=== PATIENT | male | born 1965 | race Caucasian/White ===

== ENCOUNTER 2020-05-03 15:56 | Observation (INO) | payer BC, SELFPAY ==
[2020-05-03] VITALS (7 sets, daily range): BP systolic 114–150; BP diastolic 65–98; PULSE 100–114; RESP 16–18; TEMP 36.4–36.5; O2SAT 96–100; BMI 21.2
--- NOTE | ~2020-05-03 | CT_ITS ---
EXAMINATION: CT abdomen pelvis w con INDICATION: Lower abdominal and back pain, bloody stools, weight loss TECHNIQUE: Computed tomographic images of the abdomen and pelvis were obtained after the administrati on of 100 cc of Omnipaque 350 intravenous contrast. The dose-length product (DLP) was 271.01 mGy-cm. Automated exposure control and iterative reconstruction technique were employed. COMPARISON: None available FINDINGS: There is a 9 mm nodule of the left lower lobe on image 19. The heart size is normal. The li paul, spleen, pancreas, gallbladder, and adrenal glands are normal. The kidneys are unremarkable. Ther e is marked distention of the urinary bladder. There is calcified atherosclerosis of the aorta and ma ny of the other arteries. No pathologically enlarged abdominal or pelvic lymph nodes are identified. There is no free intraperitoneal gas or evidence of bowel obstruction. There is questionable mild wal l thickening of the rectum rectum. There is mild lumbar spondylosis. IMPRESSION: 1. Possible wall thickening of the rectum which could be due to proctitis or incomplete distention. 2. Indeterminate 9 mm nodule of the left lower lobe. Consider CT in three months, PET/CT, or tissue s ampling. Reviewed, dictated and finalized at location [facility] IMPRESSION: 1. Possible wall thickening of the rectum which could be due to proctitis or in complete distention. 2. Indeterminate 9 mm nodule of the left lower lobe. Consider CT in three month s, PET/CT, or tissue sampling.
[2020-05-03 16:26] LABS: Basophils Absolute Auto 0.1 K/mm3 (0.0-0.1); Basophils Percent Auto 0.5 % (0.2-1.2); Eosinophils Absolute Auto 0.2 K/mm3 (0-0.3); Eosinophils Percent Auto 2.1 % (0-4.4); Hematocrit 45.9 % (42.0-52.0); Hemoglobin 15.9 g/dL (14.0-18.0); Immature Granulocyte Absolute 0.03 K/mm3 (0.00-0.031); Immature Granulocyte Percent A 0.3 % (0-0.5); Lymphocytes Absolute Auto 1.75 K/mm3 (0.9-3.2); Lymphocytes Percent Auto 19.2 % (18.3-44.2); Mean Corpuscular HGB Conc 34.6 g/dl (32-36); Mean Corpuscular Hemoglobin 30.3 pg (26-34); Mean Corpuscular Volume 87.6 fl (80-100); Mean Platelet Volume 9.3 fl (7.4-10.4); Monocytes Absolute Auto 0.8 K/mm3 (0.1-0.6); Monocytes Percent Auto 8.4 % (2.6-8.5); Neutrophils Absolute Auto 6.3 K/mm3 (1.3-6.7); Neutrophils Percent Auto 69.5 % (45.5-73.1); Platelet Count Result 219 k/mm3 (150-375); Red Blood Count 5.24 M/mm3 (4.6-6.20); Red Cell Distribution Width 11.9 % (11.5-14.5); White Blood Count 9.1 K/mm3 (4.5-10.0)
--- NOTE | 2020-05-03 16:26 | ED.ABDPAIN ---
HPI - Abdominal Pain General Chief Complaint: Abdominal Pain Stated Complaint: abd pain, blood and pus from rectum Time Seen by Provider: 05/03/20 16:08 Source: patient Mode of arrival: ambulatory Limitations: no limitations History of Present Illness HPI narrative: Patient is a 55-year-old male complaining of mid abdominal pain, 8 out of 10, aching, nonradiating started 6 months ago accompanied by blood in his stool which he attributes to large hemorrhoids that started 1 month ago. Patient states that he has not seen a doctor because he has been in long-term for the past 24 years . Patient denies any chest pain, shortness of breath, nausea, vomiting, fever or chills. Patient denies any urinary symptoms. Patient denies any hemoptysis, hematemesis or melena. Related Data Home Medications Medication Instructions Recorded Confirmed No Home Medications 05/03/20 05/03/20 Allergies Allergy/AdvReac Type Severity Reaction Status Date / Time No Known Allergies Allergy Verified 05/03/20 16:04 Review of Systems Review of Systems: All systems reviewed & are unremarkable except as noted in HPI and below Constitutional: Constitutional: Denies body ache(s), Denies chills, Denies excessive sweating, Denies fatigue, Denies fever(s), Denies headache(s), Denies lethargy, Denies malaise, Denies weakness and Denies weight loss Eyes: Eyes: Denies blurry vision, Denies change in vision and Denies loss of vision ENT: Denies dizziness, Denies ear discharge, Denies headache(s), Denies lip swelling, Denies epistaxis, Denies nasal congestion, Denies neck pain, Denies throat swelling and Denies tongue swelling Cardiovascular: Cardiovascular: Denies chest pain, Denies chest pain at rest, Denies chest pain with activity, Denies diaphoresis, Denies rapid heart rate, Denies edema, Denies irregular heart rhythm, Denies lightheadedness, Denies palpitations, Denies dyspnea and Denies dyspnea on exertion Respiratory: Respiratory: Denies chest congestion, Denies cough, Denies hemoptysis, Denies dyspnea and Denies dyspnea on exertion Gastrointestinal: Gastrointestinal: Denies melena, Denies diarrhea, Denies nausea, Denies vomiting and Denies hematemesis Musculoskeletal: Musculoskeletal: Denies abnormal gait, Denies deformity, Denies joint swelling, Denies limited range of motion, Denies neck pain and Denies numbness Neurologic: Denies Abnormal speech present, Denies abnormal gait, Denies confusion, Denies dizziness, Denies headache(s), Denies focal weakness, Denies loss of vision, Denies numbness, Denies Other visual disturbances, Denies Sensory deficit (Neuro) and Denies weakness Psychiatric: Psychiatric: Denies confusion, Denies depression, Denies auditory hallucinations, Denies homicidal ideation and Denies suicidal ideation Endocrine: Endocrine: Denies cold intolerance, Denies excessive sweating, Denies fatigue, Denies heat intolerance and Denies palpitations Hematologic/Lymphatic: Hematologic/Lymphatic: Denies easy bleeding and Denies easy bruising Allergic/Immunologic: Allergic/Immunologic: Denies lip swelling, Denies throat swelling and Denies tongue swelling PMFSH Social History Social History Gender identity (if verbalized by the patient): Male Comments Past medical history: Diabetes, hypertension, hyperlipidemia Family history: Noncontributory Social history: Positive for 2 pack/day smoker, negative for EtOH use, occasional drug use (METH) Exam Const: General: cooperative, healthy appearing, comfortable, no acute distress, well developed, alert and awake; No confusion Orientation/consciousness: oriented to person, oriented to place, oriented to time, patient oriented x3 and No confusion Limitations: no limitations HENMT: Head: normal to inspection, normocephalic and atraumatic Ears: hearing grossly normal bilaterally, TM normal on the right and TM normal on the left General nose exam: Normal external nose present, Normal nares present an
[2020-05-03] MEDS: SODIUM CHLORIDE 0.9% IV 1,000 ML 999 ML IV CONT ×2 (16:29→17:14)
[2020-05-03 16:30] LABS: Add Urine Microscopic? YES; Appearance Urine Clear (Clear); Bilirubin Urine Negative (Negative); Blood Urine Negative (Negative); Color Urine Straw (Yellow); Glucose Urine UA 3+ mg/dL (Negative); Ketones Urine 1+ mg/dL (Negative); Leukocyte Esterase Ur Negative LEU/UL (Negative); Nitrate Urine Negative (Negative); Protein Urine Negative (Negative); RBC Urine 0-2 /hpf (0-2); Urobilinogen Urine Negative mg/dL (<2.0)
[2020-05-03 16:31] LABS: Specific Grav Ur 1.032 (1.001-1.035)
[2020-05-03 16:36] LABS: INR 0.8; Partial Thromboplastin Time 28.5 SECONDS (22.3-36.8); Prothrombin Time 12.1 Seconds (11.1-14.7)
[2020-05-03 16:37] LABS: Lactic Acid Reflex 3.9 mmol/L (0.7-2.1)
[2020-05-03 16:39] LABS: Albumin Level 3.7 g/dL (3.5-5.1); Alkaline Phosphatase 96 U/L (38-126); Anion Gap 10 mmol/L (8-16); Aspartate Amino Transferase 22 U/L (17-59); Bilirubin,Total 0.4 mg/dL (0.2-1.3); Blood Urea Nitrogen 11 mg/dL (9-20); Carbon Dioxide 24 mmol/L (22-30); Chloride 92 mmol/L (98-107); Estimated CRCL calculation 85 ml/min; Estimated Glomerular Filt Rate > 60; Potassium 4.2 mmol/L (3.4-5.0); Sodium 126 mmol/L (137-145)
[2020-05-03 16:54] LABS: Alanine Aminotransferase 29 U/L (4-50)
[2020-05-03 17:18] LABS: Glucose 631 mg/dL (75-110)
--- NOTE | 2020-05-03 17:50 | PC.NURSE ---
upon returning to room from bathroom patient found drinking chocolate milk. Reminded pt and niece that patient is NPO at this time for testing. made aware.
[2020-05-03 17:57] LABS: Alveolar/Arterial O2 Gradient 28.3 mmHg; Base Excess ABG -3.3 mEq/l (+/-2.0); Carboxyhemoglobin 4.1 % THb (0-2.0); Fractional Inspired Oxygen 21 %; HCO3 ABG 21.6 mEq/l (22.0-26.0); Methemoglobin ABG 0.4 %THb (0-1.5); Oxygen Content ABG 20.1 %vol (16.0-22.0); Oxygen Saturation ABG 94.8 % (95.0-100.0); Oxyhemoglobin 90.1 % THb (90.0-100.0); PCO2 ABG 38.5 mmHg (35.0-45.0); PO2 ABG 75.3 mmHg (80.0-100.0); PO2 FiO2 Ratio Arterial Blood 3.59 %; Reduced Hemoglobin 5.4 %THb (0-5.0); Total Hemoglobin 15.9 g/dL (12.0-18.0); pH ABG 7.367 (7.350-7.450)
[2020-05-03 17:58] LABS: Device ROOM AIR; Site Drawn RIGHT BRACHIAL
[2020-05-03] MEDS: LACTATED RINGERS 1,000 ML 999 ML IV CONT ×2 (18:29)
[2020-05-03 19:09] LABS: Glucose Point of Care 401 (65-105)
[2020-05-03 19:24] LABS: Reflex Lactic Acid Yes or No Add Lactic
[2020-05-03] MEDS: INSULIN HUMAN REGULAR (*BKC) 100 UNITS/ML 10 UNITS SUB-Q (19:57)
[2020-05-03] MEDS: metroNIDAZOLE 500 MG/ISO 100ML 500 MG/100 ML BAG 100 MG IVPB (20:21)
[2020-05-03 20:33] LABS: Lactic Acid 16.2 mmol/L (0.7-2.1)
[2020-05-03 20:35] LABS: Glucose Point of Care 280 (65-105)
[2020-05-03] MEDS: AZITHROMYCIN 250 MG TABLET 1000 MG PO (20:42)
[2020-05-03 20:58] LABS: Lactic Acid Reflex 1.7 mmol/L (0.7-2.1)
--- NOTE | 2020-05-03 21:42 | ADMGEN ---
This patient, Glen Rojas, was admitted to Medical Room 240-01 at 2120. Patient/family oriented to hospital policies and general routines including ID bracelet, bed and alarms, visiting hours, pain management, procedures, bathroom and other care routines, personal items, smoking policy, room service/diet, and visiting hours. Information on how to activate the Rapid Response Team has been discussed. Patient/Family are encouraged to report perceived risks to care and to ask questions if they do not understand what they are told or what they should do.
[2020-05-03] MEDS: LACTATED RINGERS 1,000 ML 125 ML IV CONT (22:29)
[2020-05-03 23:02] LABS: Glucose Point of Care 133 (65-105)
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
[2020-05-04] MEDS: PANTOPRAZOLE SODIUM IV 40 MG VIAL IV PUSH ×3 (00:52→18:44)
[2020-05-04] MEDS: PHENYLEPHRINE HCL/COCOA BUTTER SUPP.RECT (*BKC) 1 SUPP RECTAL ×3 (00:54→11:40)
[2020-05-04 05:16] LABS: Hematocrit 40.7 % (42.0-52.0); Mean Corpuscular HGB Conc 34.4 g/dl (32-36); Mean Corpuscular Hemoglobin 30.4 pg (26-34); Mean Corpuscular Volume 88.5 fl (80-100); Mean Platelet Volume 9.2 fl (7.4-10.4); Platelet Count Result 200 k/mm3 (150-375); Red Cell Distribution Width 11.9 % (11.5-14.5); White Blood Count 7.9 K/mm3 (4.5-10.0)
[2020-05-04 05:27] LABS: Anion Gap 5 mmol/L (8-16); Blood Urea Nitrogen 10 mg/dL (9-20); Calcium 8.3 mg/dL (8.4-10.2); Carbon Dioxide 27 mmol/L (22-30); Chloride 102 mmol/L (98-107); Estimated CRCL calculation 85 ml/min; Estimated Glomerular Filt Rate > 60; Glucose 202 mg/dL (75-110); Sodium 134 mmol/L (137-145)
[2020-05-04 05:39] LABS: Hemoglobin A1C 13.5 % (<5.7)
[2020-05-04 05:57] VITALS: BP 132/85; PULSE 85; RESP 18; TEMP 36.6; O2SAT 99
[2020-05-04] MEDS: LACTATED RINGERS 1,000 ML 125 ML IV CONT ×2 (06:18→18:05)
[2020-05-04] MEDS: glipiZIDE 5 MG TABLET 10 MG PO (06:19)
[2020-05-04 06:59] LABS: Glucose Point of Care 212 (65-105)
[2020-05-04] MEDS: INSULIN ASPART (*BKC) 100 UNITS/ML SUB-Q (07:10)
[2020-05-04] MEDS: polyethylene glycoL 3350 17 GM POWD.PACK PO (08:09)
[2020-05-04 08:12] VITALS: O2SAT 99
[2020-05-04 10:43] LABS: Glucose Point of Care 157 (65-105)
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
[2020-05-04] MEDS: BISACODYL 5 MG TABLET EC 10 MG PO ×2 (12:17→16:03)
[2020-05-04] MEDS: NICOTINE (*PBKC) 4 MG GUM PO (12:21)
--- NOTE | 2020-05-04 13:06 | PM.IMPN ---
Progress Note: A&P Assessment and Plan (1) Proctitis: Onset Date: ~04/2020 Code(s): K62.89 - Other specified diseases of anus and rectum Status: Acute Assessment and Plan: Patient found to have retro rectal mass Started on Levofloxacin Unclear if this mass is from prostate Urology consult GI consulted Colonoscopy in am Bowel prep tonight (2) Weight loss: Onset Date: ~09/2019 Code(s): R63.4 - Abnormal weight loss Status: Acute Assessment and Plan: Unclear etiology Suspect for malignancy GI work up in progress (3) GERD (gastroesophageal reflux disease): Qualifiers: Esophagitis presence: esophagitis presence not specified Qualified Code(s): K21.9 - Gastro-esophageal reflux disease without esophagitis Code(s): K21.9 - Gastro-esophageal reflux disease without esophagitis Status: Acute Assessment and Plan: PPI (4) Tobacco abuse disorder: Code(s): Z72.0 - Tobacco use Status: Acute Assessment and Plan: Nicotine patch as needed (5) External bleeding hemorrhoids: Code(s): K64.4 - Residual hemorrhoidal skin tags Status: Acute Assessment and Plan: Local care. (6) Abdominal pain: Qualifiers: Abdominal location: unspecified location Qualified Code(s): R10.9 - Unspecified abdominal pain Code(s): R10.9 - Unspecified abdominal pain Status: Acute Assessment and Plan: Continue to monitor (7) Severe hyperglycemia due to diabetes mellitus: Code(s): E11.65 - Type 2 diabetes mellitus with hyperglycemia Status: Acute Assessment and Plan: ISS 1800 olga diet (8) Incidental lung nodule, greater than or equal to 8mm: Code(s): R91.1 - Solitary pulmonary nodule Status: Acute Assessment and Plan: Will follow in the outpatient setting Subjective Date/time seen: 05/04/20 13:06 States that has rectal pain. Review of Systems Review of Systems: Narrative: No new issues. Exam Narrative: Exam Narrative: Patient is lying in bed Const: General: cooperative, comfortable, no acute distress, well developed, alert, awake and Physically active Nutritional Appearance: average body habitus Orientation/consciousness: patient oriented x3 Limitations: no limitations HENMT: Head: normal to inspection and normocephalic Ears: hearing grossly normal bilaterally General nose exam: Normal external nose present Face and sinus: normal facial exam Eyes: General: appearance normal, both eyes and all related structures Pupils: Equal, round and reactive pupils present EOM: EOMs intact bilaterally Neck: Neck: no lymphadenopathy, supple and no JVD Resp: Effort & Inspection: normal respiratory effort and able to speak in complete sentences Auscultation: clear to auscultation bilaterally Cardio: Jugular venous distension: no JVD Rate: regular rate Rhythm: regular rhythm GI: GI Palp: Yes Soft to palpation and Yes No hepatosplenomegaly present Skin: Rashes: no rashes Wounds: no wounds Neuro: General: patient oriented x3 and CN's II-XI intact bilaterally Cranial nerves: Yes CN's II-XII intact bilaterally, Yes Equal, round and reactive pupils present and Yes Bilaterally intact EOM present Cognition (Neuro): normal cognition Speech: normal speech Gait exam (Neuro): Normal gait present Motor exam (neuro): 5/5 motor strength present throughout Extrem: General: no pedal edema Objective Data Vital Signs Vital Signs: Vital Signs - 24 hr 05/03/20 15:59 05/03/20 16:45 05/03/20 17:15 Temperature 97.5 F L Pulse Rate 114 H 111 H 102 H Respiratory Rate 18 18 16 Blood Pressure 114/73 136/85 123/90 Pulse Oximetry 97 100 100 05/03/20 18:00 05/03/20 19:11 05/03/20 20:07 Temperature Pulse Rate 103 H 102 H 103 H Respiratory Rate 16 18 16 Blood Pressure 146/98 H 150/65 H 138/86 Pulse Oximetry 100 100 96 05/03/20 21:46 05/04/20 05:57 05/04/20 08
[2020-05-04 14:00] VITALS: BP 136/93; PULSE 90; RESP 16; TEMP 36.6; O2SAT 98
[2020-05-04] MEDS: PHENYLEPH/SHARK OIL/MO/PETROL CREAM 26 GM 1 APPLIC RECTAL (16:04)
[2020-05-04] MEDS: PEG (High)/E-LYTE SOLN 4,000 ML BTL 4000 ML PO (16:21)
[2020-05-04 17:51] LABS: Glucose Point of Care 199 (65-105)
[2020-05-04] MEDS: WITCH HAZEL 40 PADS 1 PAD TOPICAL (18:44)
[2020-05-04 21:02] VITALS: BP 146/85; PULSE 92; RESP 18; TEMP 36; O2SAT 98
[2020-05-04] MEDS: MORPHINE SULFATE (*CRX) 2 MG/ML INJ 1 MG IV PUSH (21:27)
[2020-05-04 21:40] LABS: Glucose Point of Care 271 (65-105)
--- NOTE | 2020-05-04 21:40 | PC.NURSE ---
pt refusing final dose of bisacodyl at this time. Pt stool is clearing up at this time and pt has half of total bowel prep to drink.
[2020-05-05] VITALS (7 sets, daily range): BP systolic 115–144; BP diastolic 73–90; PULSE 66–94; RESP 16–22; TEMP 36.2–36.4; O2SAT 96–99; BMI 21.2
[2020-05-05] MEDS: LACTATED RINGERS 1,000 ML 125 ML IV CONT (02:47)
[2020-05-05] MEDS: PANTOPRAZOLE SODIUM IV 40 MG VIAL IV PUSH (08:03)
[2020-05-05 08:18] LABS: Glucose Point of Care 224 (65-105)
[2020-05-05 08:51] LABS: Glucose Point of Care 210 (65-105)
[2020-05-05] MEDS: LACTATED RINGERS 1,000 ML 150 ML IV CONT (08:56)
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
[2020-05-05 10:32] LABS: Glucose Point of Care 209 (65-105)
[2020-05-05 11:29] LABS: Glucose Point of Care 285 (65-105)
[2020-05-05] MEDS: INSULIN ASPART (*BKC) 100 UNITS/ML SUB-Q (11:33)
[2020-05-05] MEDS: ALPRAZolam (*CRX) 0.5 MG TABLET PO (13:54)
--- NOTE | 2020-05-05 14:22 | PCNSR ---
On 05/05/20, the student,Sandy Grace, provided care and completed [facility] documentation on this patient. I have reviewed the student's documentation and agree with the findings.
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
--- NOTE | 2020-05-05 16:51 | PM.DS ---
DS: Admitting Diagnosis Admitting Diagnosis Admitting Diagnosis: Abdominal pain. DS: Discharge Diagnosis Discharge Diagnosis (1) Incomplete emptying of bladder: Code(s): R33.9 - Retention of urine, unspecified Status: Acute Assessment and Plan: Patient was seen by Urology Started on Flomax and Finasteride Will make appointment for follow up in the outpatient setting. (2) BPH (benign prostatic hyperplasia): Code(s): N40.0 - Benign prostatic hyperplasia without lower urinary tract symptoms Status: Acute Assessment and Plan: Will follow up in the outpatient setting. (3) Incidental lung nodule, greater than or equal to 8mm: Code(s): R91.1 - Solitary pulmonary nodule Status: Acute Assessment and Plan: Follow up in the outpatient setting (4) Weight loss: Onset Date: ~09/2019 Code(s): R63.4 - Abnormal weight loss Status: Acute Assessment and Plan: Had colonoscopy with local proctitis and recatl ulcers Proctosol BID Call for Bx results (5) Proctitis: Onset Date: ~04/2020 Code(s): K62.89 - Other specified diseases of anus and rectum Status: Acute Assessment and Plan: Proctosol BID (6) GERD (gastroesophageal reflux disease): Qualifiers: Esophagitis presence: esophagitis presence not specified Qualified Code(s): K21.9 - Gastro-esophageal reflux disease without esophagitis Code(s): K21.9 - Gastro-esophageal reflux disease without esophagitis Status: Acute Assessment and Plan: PPI as needed (7) Tobacco abuse disorder: Code(s): Z72.0 - Tobacco use Status: Acute Assessment and Plan: Follow up in the outpatient setting. (8) External bleeding hemorrhoids: Code(s): K64.4 - Residual hemorrhoidal skin tags Status: Acute Assessment and Plan: Local care (9) Severe hyperglycemia due to diabetes mellitus: Code(s): E11.65 - Type 2 diabetes mellitus with hyperglycemia Status: Acute Assessment and Plan: Started on Humalog and Metformin Follow up in the outpatient setting (10) Abdominal pain: Qualifiers: Abdominal location: unspecified location Qualified Code(s): R10.9 - Unspecified abdominal pain Code(s): R10.9 - Unspecified abdominal pain Status: Acute Assessment and Plan: Resolved likely secondary to uncontrolled sugars DS: Summary Hospital Course Reason for hospitalization: Abdominal pain. Hospital Course: Glen Rojas is a 55 year old male with a past medical history for hyperlipidemia, type 2 diabetes mellitus and BPH who presented to the ER lower abdominal pain and low back pain. The patient states that he has been having low back pain for about 6 months and is worse with movement. He has been having lower abdominal pain for the last 3 months or so, was just released from jail 3 months ago after a 24 year sentence. He reports that prior to being released from jail he had a complete physical and lab work performed. The present doctor at that time told him that his prostate was enlarged and that he had a lab test that suggested that he had colon cancer . When he was released from jail he was given a script for 3 months of glipizide, metformin, statin therapy and Prilosec. He was depressed about the news that he may have colon cancer and decided not to follow-up with a doctor and decided to stop taking his medications, shortly after being released from jail he began having lower abdominal pain, polyuria, and polydipsia, intermittent bloody stools with accompanying yellow to greenish mucus, had some leakage of the mucus even with passing gas,the blood a passing is for the most part bright red in color. He does have hemorrhoids. He stated that for the 1st couple of months his stools were normally formed. Over the last couple of weeks his stools have become very large in diameter and hard, has
== END 2020-05-05 17:20 | disposition home or self-care (01) ==
LOC: ANHED 20:26 → ANH2MED 22:29
PROVIDERS: Internal Medicine Gastroenterology; Specialist; Admitting Provider Internal Medicine; Emergency Provider Emergency Medicine; Visit Provider Internal Medicine
PROC: 0DJD8ZZ Inspection of Lower Intestinal Tract, Via Natural or Artificial Opening Endoscopic (ICD-10-PCS; CPT 45378; principal; 2020-05-05 10:00)
DX: N40.1 Benign prostatic hyperplasia with lower urinary tract symptoms (principal); R33.8 Other retention of urine; E11.65 Type 2 diabetes mellitus with hyperglycemia; K51.20 Ulcerative (chronic) proctitis without complications; K64.8 Other hemorrhoids; R10.30 Lower abdominal pain, unspecified; K92.1 Melena; K64.4 Residual hemorrhoidal skin tags; K62.89 Other specified diseases of anus and rectum; E78.5 Hyperlipidemia, unspecified; R63.4 Abnormal weight loss; Z68.21 Body mass index [BMI] 21.0-21.9, adult; E11.40 Type 2 diabetes mellitus with diabetic neuropathy, unspecified; R91.1 Solitary pulmonary nodule; K21.9 Gastro-esophageal reflux disease without esophagitis; F41.8 Other specified anxiety disorders; N52.9 Male erectile dysfunction, unspecified; Z87.820 Personal history of traumatic brain injury; F17.210 Nicotine dependence, cigarettes, uncomplicated; F12.90 Cannabis use, unspecified, uncomplicated
CPT/HCPCS: 45380; 36415; 36600; 74177; 80048; 80053; 81001; 82375; 82805; 82948; 83036; 83050; 83605; 85025; 85027; 85610; 85730; 88305; 96361; 96365; 96366; 96375; 99285; A9270; C9113; G0378; G0379; J0696; J1815; J1956; J2270; J2704; J7030; J7120; Q9967

== ENCOUNTER 2020-11-16 00:39 | Emergency (ER) | payer BC, SELFPAY ==
--- NOTE | ~2020-11-16 | XR_ITS ---
EXAMINATION: XR foot LT min 3V DATE: 11/16/2020 03:34 INDICATION: Left foot pain TECHNIQUE: Dorsoplantar, lateral, and 2 oblique views of the left foot were obtained. COMPARISON: None. FINDINGS: There is no fracture, dislocation, or subluxation. The bones, soft tissues, and joint space s are normal. IMPRESSION: 1. No acute osseous abnormality. Reviewed, dictated and finalized at location A.
--- NOTE | ~2020-11-16 | CT_ITS ---
EXAMINATION: CT abdomen pelvis w con INDICATION: Abdominal pain TECHNIQUE: Computed tomographic images of the abdomen and pelvis were obtained after the administrati on of 100 cc of Omnipaque 350 intravenous contrast. The dose-length product (DLP) was 247.01 mGy-cm. Automated exposure control and iterative reconstruction technique were employed. COMPARISON: 05/03/2020 FINDINGS: There is a stable 10 mm nodule of the left lower lobe. The heart size is normal. A focal ar ea of low attenuation in the liver adjacent to the ligamentum teres likely reflects steatosis. The sp audrey, pancreas, gallbladder, and adrenal glands are normal. The kidneys are unremarkable. There is ca lcified atherosclerosis of the aorta and many of the other arteries. No pathologically enlarged abdom inal or pelvic lymph nodes are identified. There is no free intraperitoneal gas or evidence of bowel obstruction. The appendix is normal. A large volume of colonic stool is present. There is a new burst fracture of the L1 vertebral body with 5 mm of retropulsion of the posterior fracture fragment. IMPRESSION: 1. New L1 burst fracture with 5 mm of retropulsion of the posterior fracture fragment. Reviewed, dictated and finalized at location A. IMPRESSION: 1. New L1 burst fracture with 5 mm of retropulsion of the posterior fracture fr agment.
[2020-11-16 01:09] VITALS: BP 113/74; PULSE 104; RESP 18; TEMP 36.4; O2SAT 98
[2020-11-16 03:26] LABS: Basophils Percent Auto 0.6 % (0.2-1.2); Eosinophils Absolute Auto 0.2 K/mm3 (0-0.3); Eosinophils Percent Auto 2.4 % (0-4.4); Hematocrit 41.5 % (42.0-52.0); Hemoglobin 14.6 g/dL (14.0-18.0); Immature Granulocyte Absolute 0.01 K/mm3 (0.00-0.031); Immature Granulocyte Percent A 0.1 % (0-0.5); Lymphocytes Absolute Auto 2.59 K/mm3 (0.9-3.2); Lymphocytes Percent Auto 38.4 % (18.3-44.2); Mean Corpuscular HGB Conc 35.2 g/dl (32-36); Mean Corpuscular Hemoglobin 29.6 pg (26-34); Mean Corpuscular Volume 84.2 fl (80-100); Mean Platelet Volume 9.1 fl (7.4-10.4); Monocytes Absolute Auto 0.5 K/mm3 (0.1-0.6); Monocytes Percent Auto 7.9 % (2.6-8.5); Neutrophils Absolute Auto 3.4 K/mm3 (1.3-6.7); Neutrophils Percent Auto 50.6 % (45.5-73.1); Platelet Count Result 181 k/mm3 (150-375); Red Blood Count 4.93 M/mm3 (4.6-6.20); Red Cell Distribution Width 12.2 % (11.5-14.5); White Blood Count 6.7 K/mm3 (4.5-10.0)
--- NOTE | 2020-11-16 03:30 | PC.NURSE ---
Report given to Denise Amaya RN
[2020-11-16 03:36] LABS: Add Urine Microscopic? YES; Appearance Urine Clear (Clear); Bacteria Urine Trace /hpf; Bilirubin Urine Negative (Negative); Blood Urine Negative (Negative); Color Urine Straw (Yellow); Glucose Urine UA 3+ mg/dL (Negative); Ketones Urine Negative (Negative); Leukocyte Esterase Ur Negative LEU/UL (Negative); Nitrate Urine Negative (Negative); Protein Urine Negative (Negative); Urobilinogen Urine Negative mg/dL (<2.0); WBC Urine 0-3 /hpf
[2020-11-16 03:44] LABS: Alanine Aminotransferase 20 U/L (4-50); Albumin Level 3.7 g/dL (3.5-5.1); Alkaline Phosphatase 83 U/L (38-126); Anion Gap 8 mmol/L (8-16); Aspartate Amino Transferase 20 U/L (17-59); Bilirubin,Total 0.4 mg/dL (0.2-1.3); Blood Urea Nitrogen 18 mg/dL (9-20); Calcium 8.7 mg/dL (8.4-10.2); Carbon Dioxide 25 mmol/L (22-30); Chloride 100 mmol/L (98-107); Estimated CRCL calculation 68 ml/min; Estimated Glomerular Filt Rate > 60; Glucose 346 mg/dL (65-110); Lipase 104 U/L (23-300); Potassium 4.2 mmol/L (3.4-5.0); Sodium 133 mmol/L (137-145)
[2020-11-16 03:48] LABS: Specific Grav Ur 1.036 (1.001-1.035)
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
[2020-11-16 05:55] VITALS: BP 119/97; PULSE 89; RESP 18; TEMP 36.6; O2SAT 100
== END 2020-11-16 05:57 | disposition home or self-care (01) ==
PROVIDERS: Emergency Provider Emergency Medicine
DX: M79.672 Pain in left foot (principal); S32.011A Stable burst fracture of first lumbar vertebra, initial encounter for closed fracture; K40.90 Unilateral inguinal hernia, without obstruction or gangrene, not specified as recurrent; K21.9 Gastro-esophageal reflux disease without esophagitis; E11.40 Type 2 diabetes mellitus with diabetic neuropathy, unspecified; E78.5 Hyperlipidemia, unspecified; Z87.820 Personal history of traumatic brain injury; F17.210 Nicotine dependence, cigarettes, uncomplicated; X58.XXXA Exposure to other specified factors, initial encounter; W20.8XXA Other cause of strike by thrown, projected or falling object, initial encounter; Z79.4 Long term (current) use of insulin
CPT/HCPCS: 36415; 73630; 74177; 80053; 81001; 83690; 85025; 99284; Q9967

== ENCOUNTER 2021-04-26 14:08 | Emergency (ER) | payer BC, SELFPAY ==
[2021-04-26] VITALS (23 sets, daily range): BP systolic 127–148; BP diastolic 73–92; PULSE 97–110; RESP 15–22; TEMP 36.4; O2SAT 94–100
--- NOTE | ~2021-04-26 | XR_ITS ---
EXAMINATION: XR chest 2V DATE: 04/26/2021 14:38 INDICATION: Right-sided chest pain TECHNIQUE: AP and lateral views of the chest are obtained. 11/09/2020 COMPARISON: None available FINDINGS: There is an indeterminate nodular opacity of the right midlung zone. There is no pleural ef fusion or pneumothorax. The cardiomediastinal silhouette is normal. There is mild thoracic spondylosi s. A burst fracture of L1 is again noted. IMPRESSION: 1. Indeterminate nodular opacity of the right midlung zone which could be infectious or inflammatory however malignancy could've a similar appearance. Follow-up with CT of the chest is recommended. Reviewed, dictated and finalized at location F. [employer] IMPRESSION: 1. Indeterminate nodular opacity of the right midlung zone which could be infec tious or inflammatory however malignancy could've a similar appearance. Follow- up with CT of the chest is recommended.
--- NOTE | 2021-04-26 14:11 | ECG_ITS ---
Measurements Intervals [place] Rate: 109 P: 72 LA: 143 QRS: 54 QRSD: 73 T: 69 QT: 338 QTc: 456 Interpretive Statements SINUS TACHYCARDIA NONSPECIFIC T-WAVE ABNORMALITY- DIFFUSE LEADS ABNORMAL ECG Electronically Signed On 04-26-2021 20:14:29 [employer] by Parvez Ramos D.O.
[2021-04-26 14:31] LABS: Basophils Absolute Auto 0.1 K/mm3 (0.0-0.1); Basophils Percent Auto 0.4 % (0.2-1.2); Eosinophils Absolute Auto 0.1 K/mm3 (0-0.3); Eosinophils Percent Auto 0.6 % (0-4.4); Hematocrit 42.8 % (42.0-52.0); Hemoglobin 15.1 g/dL (14.0-18.0); Immature Granulocyte Percent A 0.8 % (0-0.5); Lymphocytes Percent Auto 10.9 % (18.3-44.2); Mean Corpuscular HGB Conc 35.3 g/dl (32-36); Mean Corpuscular Hemoglobin 29.5 pg (26-34); Mean Corpuscular Volume 83.8 fl (80-100); Mean Platelet Volume 8.3 fl (7.4-10.4); Monocytes Percent Auto 8.2 % (2.6-8.5); Neutrophils Absolute Auto 9.4 K/mm3 (1.3-6.7); Neutrophils Percent Auto 79.1 % (45.5-73.1); Platelet Count Result 279 k/mm3 (150-375); Red Blood Count 5.11 M/mm3 (4.6-6.20); Red Cell Distribution Width 12.3 % (11.5-14.5); White Blood Count 11.9 K/mm3 (4.5-10.0)
[2021-04-26 14:41] LABS: INR 0.9; Prothrombin Time 11.8 Seconds (11.1-14.7)
[2021-04-26 14:42] LABS: Partial Thromboplastin Time 31.8 SECONDS (22.3-36.8)
[2021-04-26] MEDS: HYDROcodone/acetaminophen (*CRX) 5-325 MG TABLET 1 TAB PO (14:58)
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
[2021-04-26 15:18] LABS: Alanine Aminotransferase 19 U/L (4-50); Albumin Level 3.6 g/dL (3.5-5.1); Alkaline Phosphatase 143 U/L (38-126); Anion Gap 7 mmol/L (8-16); Aspartate Amino Transferase 47 U/L (17-59); Bilirubin,Total 0.5 mg/dL (0.2-1.3); Blood Urea Nitrogen 15 mg/dL (9-20); Calcium 8.4 mg/dL (8.4-10.2); Carbon Dioxide 26 mmol/L (22-30); Chloride 97 mmol/L (98-107); Estimated CRCL calculation 91 ml/min; Estimated Glomerular Filt Rate > 60; Glucose 364 mg/dL (65-110); Lipase 340 U/L (23-300); Potassium 4.1 mmol/L (3.4-5.0); Sodium 130 mmol/L (137-145)
[2021-04-26 15:27] LABS: Troponin I < 0.012 ng/mL (0.000-0.034)
[2021-04-26] MEDS: SODIUM CHLORIDE 0.9% IV 1,000 ML 999 ML IV CONT (16:36)
== END 2021-04-26 17:57 | disposition home or self-care (01) ==
PROVIDERS: Emergency Medicine; Emergency Provider Emergency Medicine
DX: R07.89 Other chest pain (principal); R91.1 Solitary pulmonary nodule; E11.65 Type 2 diabetes mellitus with hyperglycemia; E11.40 Type 2 diabetes mellitus with diabetic neuropathy, unspecified; K21.9 Gastro-esophageal reflux disease without esophagitis; E78.5 Hyperlipidemia, unspecified; Z87.820 Personal history of traumatic brain injury; F17.210 Nicotine dependence, cigarettes, uncomplicated; Z79.4 Long term (current) use of insulin; Z79.84 Long term (current) use of oral hypoglycemic drugs; R00.0 Tachycardia, unspecified; R94.31 Abnormal electrocardiogram [ECG] [EKG]
CPT/HCPCS: 36415; 71046; 80053; 83690; 84484; 85025; 85610; 85730; 93005; 96360; 99284; A9270; J7030

== ENCOUNTER 2021-07-04 13:31 | Emergency (ER) | payer BC, SELFPAY ==
--- NOTE | ~2021-07-04 | XR_ITS ---
EXAM: XR foot LT min 3V HISTORY: NEUROPATHY,SORES ON FEET COMPARISON: 11/16/2020. FINDINGS: Normal mineralization. No fracture or dislocation. No lytic or blastic lesion. Mild hallux valgus and degenerative change at the first MTP. No erosion or periosteal change. Soft tissues withi n normal limits. IMPRESSION: No acute osseous finding the left foot. Reviewed, dictated and finalized at location K.
--- NOTE | ~2021-07-04 | XR_ITS ---
EXAMINATION: XR chest 2V Exam Date/Time: 07/04/2021 15:35 CDT CLINICAL HISTORY: cough,left sided cp Comparison: 04/26/21. RESULT: Lines, tubes, and devices: None. Lungs and pleura: Clear. Interval decrease in size of the nodular right midlung opacity. Cardiomediastinal silhouette: Stable cardiomediastinal silhouette. Other: No acute osseous or upper abdominal finding. IMPRESSION: No acute cardiopulmonary process Reviewed, dictated and finalized at location K.
[2021-07-04 13:32] VITALS: BP 107/75; PULSE 112; RESP 17; TEMP 36.7; O2SAT 99
[2021-07-04 13:46] LABS: Glucose Point of Care 494 mg/dl (65-105)
[2021-07-04 13:56] LABS: Basophils Absolute Auto 0.1 K/mm3 (0.0-0.1); Basophils Percent Auto 0.3 % (0.2-1.2); Eosinophils Absolute Auto 0.1 K/mm3 (0-0.3); Eosinophils Percent Auto 0.5 % (0-4.4); Hematocrit 47.3 % (42.0-52.0); Immature Granulocyte Absolute 0.06 K/mm3 (0.00-0.031); Immature Granulocyte Percent A 0.4 % (0-0.5); Lymphocytes Absolute Auto 2.72 K/mm3 (0.9-3.2); Lymphocytes Percent Auto 18.7 % (18.3-44.2); Mean Corpuscular HGB Conc 33.8 g/dl (32-36); Mean Corpuscular Hemoglobin 28.7 pg (26-34); Mean Corpuscular Volume 84.8 fl (80-100); Mean Platelet Volume 8.8 fl (7.4-10.4); Monocytes Absolute Auto 1.2 K/mm3 (0.1-0.6); Monocytes Percent Auto 8.2 % (2.6-8.5); Neutrophils Absolute Auto 10.5 K/mm3 (1.3-6.7); Neutrophils Percent Auto 71.9 % (45.5-73.1); Platelet Count Result 236 k/mm3 (150-375); Red Blood Count 5.58 M/mm3 (4.6-6.20); Red Cell Distribution Width 12.8 % (11.5-14.5); White Blood Count 14.6 K/mm3 (4.5-10.0)
[2021-07-04 14:06] VITALS: BP 109/73; PULSE 105; RESP 18; O2SAT 98
[2021-07-04 14:08] LABS: Alveolar/Arterial O2 Gradient 21.5 mmHg; Base Excess ABG -2.7 mEq/l (+/-2.0); Carboxyhemoglobin 0.9 % THb (0-2.0); Fractional Inspired Oxygen 21 %; HCO3 ABG 21.5 mEq/l (22.0-26.0); Methemoglobin ABG 0.4 %THb (0-1.5); Oxygen Content ABG 20.3 %vol (16.0-22.0); Oxygen Saturation ABG 96.4 % (95.0-100.0); Oxyhemoglobin 94.7 % THb (90.0-100.0); PO2 ABG 85.1 mmHg (80.0-100.0); PO2 FiO2 Ratio Arterial Blood 4.05 %; Total Hemoglobin 15.2 g/dL (12.0-18.0); pH ABG 7.394 (7.350-7.450)
[2021-07-04 14:12] LABS: Beta-Hydroxybutyrate/Acetoacetate 0.38 mmol/L (0.02-0.27)
[2021-07-04 14:12] LABS: Modified Allen's Test Pass; Site Drawn RIGHT RADIAL
[2021-07-04 14:14] LABS: Alanine Aminotransferase 28 U/L (4-50); Albumin Level 4.2 g/dL (3.5-5.1); Alkaline Phosphatase 143 U/L (38-126); Anion Gap 9 mmol/L (8-16); Aspartate Amino Transferase 28 U/L (17-59); Bilirubin,Total 0.9 mg/dL (0.2-1.3); Blood Urea Nitrogen 21 mg/dL (9-20); Calcium 8.9 mg/dL (8.4-10.2); Carbon Dioxide 30 mmol/L (22-30); Chloride 92 mmol/L (98-107); Estimated CRCL calculation 61 ml/min; Estimated Glomerular Filt Rate > 60; Glucose 526 mg/dL (65-110); Magnesium 1.8 mg/dL (1.6-2.3); Phosphorus 5.9 mg/dL (2.5-4.5); Sodium 131 mmol/L (137-145)
[2021-07-04] MEDS: SODIUM CHLORIDE 0.9% IV 1,000 ML 999 ML IV CONT ×2 (14:20→15:29)
[2021-07-04 14:38] LABS: Appearance Urine Clear (Clear); Bilirubin Urine Negative (Negative); Blood Urine Negative (Negative); Color Urine Yellow (Yellow); Glucose Urine UA 3+ mg/dL (Negative); Ketones Urine 1+ mg/dL (Negative); Leukocyte Esterase Ur Negative LEU/UL (Negative); Nitrate Urine Negative (Negative); Protein Urine Negative (Negative); Specific Grav Ur 1.015 (1.001-1.035); Urobilinogen Urine 0.2 mg/dL (<2.0)
[2021-07-04 14:47] LABS: Mucus Urine Rare /lpf; RBC Urine 0-2 /hpf (0-2); WBC Urine 0-3 /hpf
[2021-07-04 14:50] LABS: Add Urine Microscopic? YES
[2021-07-04 15:23] VITALS: BP 122/87; PULSE 95; RESP 21; O2SAT 100
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
[2021-07-04] MEDS: INSULIN HUMAN REGULAR (*BKC) 100 UNITS/ML IV PUSH (15:30)
[2021-07-04 16:35] VITALS: BP 119/84; PULSE 91; RESP 20; O2SAT 98
[2021-07-04 17:24] LABS: Glucose Point of Care 178 mg/dl (65-105)
[2021-07-04 17:54] VITALS: BP 105/75; PULSE 82; RESP 18; O2SAT 97
== END 2021-07-04 17:55 | disposition home or self-care (01) ==
PROVIDERS: Emergency Medicine; Emergency Provider Emergency Medicine
DX: S99.922A Unspecified injury of left foot, initial encounter (principal); R05.9 Cough, unspecified; K64.9 Unspecified hemorrhoids; F17.210 Nicotine dependence, cigarettes, uncomplicated; E11.40 Type 2 diabetes mellitus with diabetic neuropathy, unspecified; E78.5 Hyperlipidemia, unspecified; K21.9 Gastro-esophageal reflux disease without esophagitis; Z87.820 Personal history of traumatic brain injury; Z79.4 Long term (current) use of insulin; Z79.84 Long term (current) use of oral hypoglycemic drugs; W20.8XXA Other cause of strike by thrown, projected or falling object, initial encounter
CPT/HCPCS: 36415; 36600; 71046; 73630; 80053; 81001; 82010; 82375; 82805; 82948; 83036; 83050; 83735; 84100; 85025; 96361; 96374; 99284; J1815; J7030

== ENCOUNTER 2021-08-18 15:13 | Emergency (ER) | payer BC, SELFPAY ==
[2021-08-18 15:16] VITALS: BP 99/75; PULSE 109; RESP 16; TEMP 36.9; O2SAT 99
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
[2021-08-18 16:11] LABS: Basophils Absolute Auto 0.1 K/mm3 (0.0-0.1); Basophils Percent Auto 0.6 % (0.2-1.2); Eosinophils Absolute Auto 0.2 K/mm3 (0-0.3); Eosinophils Percent Auto 1.3 % (0-4.4); Hematocrit 44.2 % (42.0-52.0); Hemoglobin 15.1 g/dL (14.0-18.0); Immature Granulocyte Absolute 0.15 K/mm3 (0.00-0.031); Immature Granulocyte Percent A 1.3 % (0-0.5); Lymphocytes Absolute Auto 2.98 K/mm3 (0.9-3.2); Lymphocytes Percent Auto 25.7 % (18.3-44.2); Mean Corpuscular HGB Conc 34.2 g/dl (32-36); Mean Corpuscular Hemoglobin 27.9 pg (26-34); Mean Corpuscular Volume 81.5 fl (80-100); Mean Platelet Volume 8.4 fl (7.4-10.4); Monocytes Absolute Auto 0.8 K/mm3 (0.1-0.6); Neutrophils Absolute Auto 7.4 K/mm3 (1.3-6.7); Neutrophils Percent Auto 64.1 % (45.5-73.1); Platelet Count Result 340 k/mm3 (150-375); Red Blood Count 5.42 M/mm3 (4.6-6.20); Red Cell Distribution Width 12.5 % (11.5-14.5); White Blood Count 11.6 K/mm3 (4.5-10.0)
[2021-08-18 16:20] LABS: Lactic Acid Reflex 1.4 mmol/L (0.7-2.0)
[2021-08-18 16:21] LABS: Alanine Aminotransferase 25 U/L (6-50); Alkaline Phosphatase 163 U/L (38-126); Anion Gap 12 mmol/L (8-16); Aspartate Amino Transferase 24 U/L (17-59); Bilirubin,Total 0.8 mg/dL (0.2-1.3); Blood Urea Nitrogen 23 mg/dL (9-20); Calcium 9.7 mg/dL (8.4-10.2); Carbon Dioxide 26 mmol/L (22-30); Chloride 94 mmol/L (98-107); Estimated CRCL calculation 46 ml/min; Estimated Glomerular Filt Rate > 60; Glucose 317 mg/dL (65-110); Sodium 132 mmol/L (137-145)
[2021-08-18 16:50] LABS: Hemoglobin A1C 13.3 % (<5.7)
[2021-08-18] MEDS: cefTRIAXone 2 GM in SODIUM CHLORIDE 0.9% IV 100 ML 200 ML IVPB (18:33)
[2021-08-18] MEDS: SODIUM CHLORIDE 0.9% IV 1,000 ML 999 ML IV CONT (18:33)
[2021-08-18 19:14] VITALS: BP 118/68; PULSE 74; RESP 16; TEMP 36.8; O2SAT 100
== END 2021-08-18 19:15 | disposition home or self-care (01) ==
LOC: ANHED 18:07
PROVIDERS: Emergency Provider Nurse Practitioner Family
DX: L02.215 Cutaneous abscess of perineum (principal); E11.40 Type 2 diabetes mellitus with diabetic neuropathy, unspecified; E78.5 Hyperlipidemia, unspecified; K21.9 Gastro-esophageal reflux disease without esophagitis; Z87.820 Personal history of traumatic brain injury; Z79.84 Long term (current) use of oral hypoglycemic drugs; Z79.4 Long term (current) use of insulin; F17.210 Nicotine dependence, cigarettes, uncomplicated
CPT/HCPCS: 36415; 80053; 83036; 83605; 85025; 87070; 87147; 87186; 87205; 96365; 99284; J0696; J7030